=== PATIENT | male | born 1930 | race Caucasian/White ===

== ENCOUNTER → 2016-11-25 | Outpatient (REF) | payer MEDICARE ==
[~2016-11-25] MED LIST: AMOX500C PO; ATEN100T PO; CALC1CAP31 PO; CALC600T7 PO; COUM2.5T17 PO; ERGO500014 PO; FLEC1TAB PO; FURO40TA2 PO; KLOR1TAB69 PO; OMEP20CA3 PO; PACE400T PO; SIMV40TA2 PO; TYLE325T5 PO; VITMTA PO; ZYLO300T4 PO
== END ==
LOC: M LAB REF 11:17
PROVIDERS: ATTEND Nurse Practitioner Adult Health
DX: M10.9 Gout, unspecified (principal)

== ENCOUNTER → 2018-02-19 | Outpatient (REF) | payer MEDICARE | LOC: M LAB REF 16:39 | DX: L08.9 Local infection of the skin and subcutaneous tissue, unspecified (principal) | CPT/HCPCS: 87186 ==

== ENCOUNTER → 2018-02-25 | Outpatient (REF) | payer MEDICARE | LOC: M LAB REF 15:46 | DX: L08.9 Local infection of the skin and subcutaneous tissue, unspecified (principal) | CPT/HCPCS: 87186 ==

== ENCOUNTER → 2018-08-28 | Outpatient (REF) | payer MEDICARE ==
[~2018-08-28] MED LIST changes: -ERGO500014 PO; +VITA500045 PO; -ZYLO300T4 PO; +ZYLO300T6 PO
[2018-08-28 18:15] LABS: C REACTIVE PROTEIN QUANTITATIV 0.39 MG/DL (0.00-0.30); URIC ACID 4.3 MG/DL (3.5-7.2)
== END ==
LOC: M LAB REF 17:05
PROVIDERS: ATTEND Nurse Practitioner Adult Health
DX: Z79.899 Other long term (current) drug therapy (principal); M1A.09X0 Idiopathic chronic gout, multiple sites, without tophus (tophi)

== ENCOUNTER → 2018-12-29 | Outpatient (REF) | payer MEDICARE ==
[~2018-12-29] MED LIST changes: -OMEP20CA3 PO; +OMEP20CA4 PO
[2018-12-29 20:11] LABS: C REACTIVE PROTEIN QUANTITATIV 0.37 MG/DL (0.00-0.30); URIC ACID 4.4 MG/DL (3.5-7.2)
== END ==
LOC: M LAB REF 19:39
PROVIDERS: ATTEND Nurse Practitioner Adult Health
DX: M1A.09X0 Idiopathic chronic gout, multiple sites, without tophus (tophi) (principal); Z79.01 Long term (current) use of anticoagulants

== ENCOUNTER → 2019-06-03 | Outpatient (CLI) | payer MEDICARE ==
[~2019-06-03] MED LIST changes: +OMEP1CAP73 PO; -OMEP20CA4 PO; -SIMV40TA2 PO; +SIMV40TA20 PO
--- NOTE | 2019-06-07 07:03 | EEG ---
DATE OF EE06/03/2019 REFERRING PHYSICIAN: Iva Jaimes DIAGNOSIS: Abnormal involuntary movements of arms and legs, rule out seizure. EEG NUMBER: [id number]. HISTORY: Patient is an 89-year-old man who had an episode of involuntary movements of arms and legs when they suddenly started to flail. It lasted for less than a minute. He did not lose consciousness. He felt nausea. This EEG was done to rule out epileptic potential. He is currently taking Coumadin, atenolol, Lasix, levothyroxine, etc. TECHNICAL DESCRIPTION: This digital EEG was recorded by 21 scalp, ear, and two EKG electrodes and was reviewed in bipolar and referential montages following reformatting in 10-20 International Electrode Placement System. INTERPRETATION: Patient was noted to be in awake and drowsy states during this EEG. Resting awake background rhythm consisted of well-formed posterior dominant rhythm with anterior/posterior gradient comprising of 9 Hz alpha activity measuring 15-40 microvolts in amplitude, which was symmetric and reactive to eye opening. Anteriorly low voltage and mixed frequency activity was noted. Attenuation of posterior dominant rhythm was seen during transition into drowsiness. Stage I and II sleep were reviewed and were symmetric bilaterally. Hyperventilation could not be performed. Photic stimulation remained unremarkable. EKG revealed normal sinus rhythm. No focal, lateralizing, or epileptiform abnormalities were seen. No relevant clinical activity was noted. CONCLUSION: This EEG in awake, drowsy states, stage I and II sleep is within normal limits.
== END ==
LOC: M SLEEP 09:52
PROVIDERS: ATTEND Nurse Practitioner Adult Health
DX: R25.8 Other abnormal involuntary movements (principal)

== ENCOUNTER → 2019-07-27 | Outpatient (REF) | payer MEDICARE ==
[2019-07-27 18:49] LABS: C REACTIVE PROTEIN QUANTITATIV 0.61 MG/DL (0.00-0.30)
== END ==
LOC: M LAB REF 17:25
PROVIDERS: ATTEND Nurse Practitioner Adult Health
DX: M1A.00X0 Idiopathic chronic gout, unspecified site, without tophus (tophi) (principal)

== ENCOUNTER → 2020-07-19 | Outpatient (REF) | payer MEDICARE ==
[~2020-07-19] MED LIST changes: +AMIO400T8 PO; +CALC-212 PO; -CALC600T7 PO; -PACE400T PO
[2020-07-19 22:01] LABS: C REACTIVE PROTEIN QUANTITATIV 0.48 MG/DL (0.00-0.30); URIC ACID 3.6 MG/DL (3.5-7.2)
== END ==
LOC: M LAB REF 16:23
PROVIDERS: ATTEND Nurse Practitioner Adult Health
DX: M10.9 Gout, unspecified (principal); M06.9 Rheumatoid arthritis, unspecified

== ENCOUNTER → 2020-12-15 | Outpatient (CLI) | payer MEDICARE ==
[~2020-12-15] MED LIST changes: +ACET500T15 PO; +ALLO300T2 PO; +ERGO500029 PO; +FISH1000 PO; +K-TA10TA2 PO; +LEVO25TA5 PO; +METR0.7533 TOP; +PRAV20TA2 PO; +VITA250T4 PO; +WARF-18 PO
== END ==
LOC: M LABSMTC 09:04
PROVIDERS: ATTEND Anesthesiology
DX: Z01.818 Encounter for other preprocedural examination (principal); Z11.52 Encounter for screening for COVID-19

== ENCOUNTER 2020-12-20 13:28 | Day surgery (SDC) | payer MEDICARE ==
[~2020-12-20] VITALS: Ht 180.3 cm; Wt 33.1 kg
[2020-12-20] MEDS ORDERED: LIDOCAINE 1% MDV 20ML VIAL As Ordered ONE (14:06)
[2020-12-20] MEDS ORDERED: LIDOCAINE 2% 100MG/5ML SDV (FOR ANES.) As Ordered ONE (14:11)
[2020-12-20] MEDS ORDERED: MIDAZOLAM INJ 2MG/2ML VIAL (J2250 PER 1MG) As Ordered ONE (14:11)
[2020-12-20] MEDS ORDERED: fentaNYL 100 MCG/2 ML INJECTION (J3010) As Ordered ONE (14:11)
[2020-12-20] MEDS ORDERED: propofoL 200 MG/20 ML VIAL As Ordered ONE (14:11)
[2020-12-20] MEDS ORDERED: ceFAZolin 1GM VIAL (J0690 PER 500MG) As Ordered ONE (14:23)
[2020-12-20] MEDS ORDERED: ceFAZolin SOD 1 GM in D5W MINI-BAG PLUS 50 ML IV SCH (14:25)
[2020-12-20] MEDS ORDERED: ONDANSETRON 4MG/2ML VIAL As Ordered ONE (14:37)
[2020-12-20 14:52] LABS: INR 2.04; PROTHROMBIN TIME 23.5 SECONDS (12.7-14.5)
[2020-12-20] MEDS ORDERED: fentaNYL 100 MCG/2 ML INJECTION (J3010) IV PRN (16:10)
[2020-12-20] MEDS ORDERED: ONDANSETRON 4MG/2ML VIAL IV PRN (16:10)
[2020-12-20] MEDS ORDERED: LR 1,000 ML IV SCH (16:10)
[2020-12-20] MEDS ORDERED: oxyCODONE 5MG TAB PO PRN (16:10)
--- NOTE | 2020-12-20 17:47 | RO ---
OPERATIVE NOTE DATE OF OPERATION: 12/20/2020 PREOPERATIVE DIAGNOSIS: Unexplained syncope. POSTOPERATIVE DIAGNOSIS: Unexplained syncope. FINDINGS: Unexplained syncope. PROCEDURE PERFORMED: Implantation of a Medtronic subcutaneous cardiac rhythm monitor. SURGEON: Geoff Frazier M.D. CAMERA MACHINIST: None. ANESTHESIA: Lidocaine 1% local/monitored anesthetic care. SPECIMENS: None. ESTIMATED BLOOD LOSS: Less than 1 mL. BLOOD PRODUCTS REPLACED: None. DRAINS: None. COMPLICATIONS: None. PROCEDURE DESCRIPTION: Patient was prepped and draped over the left anterior chest and sternum. Lidocaine 1% was used for local anesthetic. An incision approximately 1 cm in length was made with a #15 blade at the left interspace about one inch lateral to the left parasternal border. The guide on the insertion tool was placed into the incision and advanced in the subcutaneous tissue parallel to the anterior chest in a 45 degree caudal-left lateral direction. The insertion tool was rotated 180 degrees. The punch was placed into the insertion tool and used to advance the loop recorder into the subcutaneous tissue. The punch was removed and then the insertion tool was removed, leaving the loop recorder in place. The initial R wave amplitude measured 0.33 millivolts. The skin was then approximated temporarily using a 4-0 Biosyn suture applied subcuticular with the free ends of the suture protruding 1 cm from the skin on both ends of the incision outline. Three layers of Dermabond were applied. The Biosyn suture was then pulled through the incision line and removed entirely. The patient tolerated the procedure well without any immediate complications. The subcutaneous cardiac rhythm monitor implanted was a Medtronic LINQ II with model #LNQ22 with serial number [id number].
[2020-12-20 17:58] VITALS: BP 137/70
== END 2020-12-20 18:18 | disposition home or self-care (01) ==
LOC: M SDC 13:28
PROVIDERS: ATTEND Internal Medicine Cardiovascular Disease
DX: R55 Syncope and collapse (principal); I10 Essential (primary) hypertension; R07.9 Chest pain, unspecified; E78.00 Pure hypercholesterolemia, unspecified; E03.9 Hypothyroidism, unspecified; M19.90 Unspecified osteoarthritis, unspecified site; G47.30 Sleep apnea, unspecified; Z87.891 Personal history of nicotine dependence; Z79.899 Other long term (current) drug therapy; Z79.01 Long term (current) use of anticoagulants; Z86.79 Personal history of other diseases of the circulatory system
CPT/HCPCS: 33285; 36415; 85610; C1764; J0690; J2250; J2405; J3010